=== PATIENT | male | born 1970 ===

== ENCOUNTER 2019-12-22 11:41 | Inpatient (IN) | payer OTHER ==
[2019-12-22 12:22] LABS: #Lymphocytes 0.4 thou/uL (1.20-3.40); #Monocytes 0.5 thou/uL (0.11-0.59); #Neutrophils 7.8 thou/uL (1.40-6.50); %Basophils 0.5 % (0.0-1.0); %Eosinophils 0.2 % (0.0-10.0); %Lymphocytes 4.7 % (21.0-51.0); %Monocytes 5.5 % (0.0-10.0); %Neutrophils 89.1 % (42.0-75.0); Hemoglobin 14.6 g/dL (14.0-18.0); Mean Corpuscular HGB CONC 35.4 g/dL (32.0-36.0); Mean Corpuscular Hemoglobin 32.6 pg (27.0-31.0); Mean Corpuscular Volume 92.3 fL (78.0-98.0); Mean Platelet Volume 8.3 fL (7.4-10.4); Platelet Count 162 thou/uL (130-400); RBC Distribution Width 12.7 % (11.5-14.5); Red Blood Cell (RBC) Count 4.49 mill/uL (4.70-6.10); White Blood Cell (WBC) Count 8.8 thou/uL (4.8-10.8)
--- NOTE | 2019-12-22 12:34 | RAD ---
RADIOGRAPH CHEST 1 VIEW: DATE: 12/22/2019 HISTORY: 49-year-old male with fever FINDINGS: There are no airspace densities, pulmonary edema, pneumothorax, or cardiomegaly. The lateral costophr enic angles are sharp. IMPRESSION: No acute cardiopulmonary findings.
[2019-12-22 12:45] LABS: ALT (SGPT) 45 U/L (8-55); AST (SGOT) 35 U/L (5-34); Albumin 3.9 g/dL (3.5-5.0); Alkaline Phosphatase 93 U/L (40-110); Anion Gap 13 mmol/L (10-20); BUN (Urea Nitrogen) 17 mg/dL (8.9-20.6); Bilirubin, Total 1.7 mg/dL (0.2-1.2); CK (CPK) 63 U/L (30-200); Calc. Creatinine Clearance 0 mL/min (70-130); Calcium 9.1 mg/dL (7.8-10.44); Carbon Dioxide 21 mmol/L (22-29); Chloride 104 mmol/L (98-107); Estimated GFR-MDRD 78; Globulin 3.6 g/dL (2.4-3.5); Glucose 115 mg/dL (70-105); Lipase 18 U/L (8-78); Potassium 3.9 mmol/L (3.5-5.1); Protein, Total 7.5 g/dL (6.0-8.3); Sodium 134 mmol/L (136-145)
[2019-12-22] MEDS ORDERED: Fentanyl 100 MCG/2 ML VIAL ONE ×2 (12:47→15:59)
[2019-12-22 13:19] LABS: CKMB 0.4 ng/mL (0-6.6)
[2019-12-22 13:55] LABS: Bacteria/HPF None Seen HPF (None Seen); Bilirubin Negative (Negative); Blood, Urine Trace (Negative); Clarity Clear (Clear); Glucose, Urine (Dipstick) Normal (Negative); Ketone, Urine Negative (Negative); Leukocyte Negative Leu/uL (Negative); Nitrite Negative (Negative); Protein, Urine (Dipstick) Negative (Neg-Trace); RBC/HPF 0-3 HPF (0-3); Squamous Epithelial None Seen HPF (0-3); Urobilinogen Normal mg/dL (Less than 2); WBC/HPF 0-3 HPF (0-3)
--- NOTE | 2019-12-22 14:47 | CT ---
CT ANGIOGRAM OF CHEST WITH 3D RENDERIN12/22/19 HISTORY: Elevated D-dimer, fever, neck and shoulder pain. FINDINGS: Minimal bilateral linear horizontal parenchymal changes evidence for some mild chronic change or subs egmental atelectasis. No evidence for confluent pneumonia. No mediastinal mass or adenopathy. No pleu ral effusion or pericardial effusion. The visualized upper abdomen is unremarkable. IMPRESSION: 1. No convincing CT evidence for acute pulmonary embolism. 2. Mild horizontal linear and parenchymal changes bilaterally, evidence for chronic change. POS: [facility]
[2019-12-22] MEDS ORDERED: Iopamidol-370 76% 500 ML 1 ML ONE (14:57)
[2019-12-22] MEDS ORDERED: cefTRIAXone\\ROCEPHIN 1 GM VIAL ONE (15:09)
[2019-12-22] MEDS ORDERED: Dexamethasone 10 MG/ML VIAL ONE (15:09)
[2019-12-22] MEDS ORDERED: Azithromycin 500 MG VIAL ONE (15:09)
[2019-12-22] MEDS ORDERED: Ibuprofen 800 MG TAB ONE (15:32)
[2019-12-22] MEDS ORDERED: Acetaminophen 500 MG TAB ONE (15:32)
[2019-12-22] MEDS ORDERED: Ondansetron PF 4 MG/2 ML Vial ONE (16:00)
[2019-12-22] MEDS ORDERED: Ondansetron ODT 4 MG TAB PO PRN (16:58)
--- NOTE | 2019-12-22 17:44 | PDOC.FPRHP ---
- History of Present Illness Chief Complaint: neck pain History of Present Illness: Pt is a 49 yo inmate with a PMH of [place] s/p 3 stents, HTN, HLD who presents with neck pain. He states on Tuesday or Tuesday of this week he noticed a "sore" on his upper back/neck that was painful. He said the "sore" went away and the pain got better and then the pain got worse yesterday morning when he woke up. The pain starts in his neck and radiates down to his back to about the level of his scapula. He denies the sore ever ulcerating or draining any fluid or pus. He at first just thought he slept on his neck wrong, but the pain got progressively worse. He denies any bites or trauma that he knows of. Nothing like this has ever happened before. He denies any other symptoms including no LIND, vision changes, CP, SOB, loss of bowel or urine incontinence, weakness or numbness in any of his extremities, changes in bowel habits, weight loss, night sweats, fatigue, dark stools, ingestion of any substances or any drug use. ED Course: patient received 2L NS, Rocephin 1g, Azithromycin 500mg, Zofran, Fentanyl - Allergies/Adverse Reactions Allergies Allergy/AdvReac Type Severity Reaction Status Date / Time No Known Drug Allergies Allergy Unverified 12/22/19 18:31 - Home Medications Medication Instructions Recorded Confirmed Type Amlodipine [Norvasc] 5 mg PO DAILY 12/22/19 12/22/19 History Aspirin [Children's Aspirin] 81 mg PO DAILY 12/22/19 12/22/19 History Atorvastatin Calcium 80 mg PO DAILY 12/22/19 12/22/19 History Carvedilol [Coreg] 25 mg PO DAILY 12/22/19 12/22/19 History Clopidogrel Bisulfate [Clopidogrel] 75 mg PO 12/22/19 History - History PMHx: [place] s/p 3 stents PSHx: Artificial left lens FHx: mom and dad both have a history of heart disease Social: used to smoke, but stopped in 1995. 1/2ppd for 5 years. Endorses social alcohol use and marijuana use but no IV drugs - Review of Systems General: reports: fever/chills. denies: weight/appetite/sleep changes, night sweats, fatigue Eyes: denies: vision changes Respiratory: denies: cough, shortness of breath Cardiovascular: denies: chest pain, palpitation, edema Gastrointestinal: reports: nausea. denies: vomiting, diarrhea, constipation, abdominal pain, GI bleeding Genitourinary: denies: dysuria Skin: reports: lesions (as per HPI). denies: rashes, jaundice Musculoskeletal: reports: tenderness (as per HPI). denies: pain Neurological: denies: numbness, syncope, seizure, weakness Psychological: denies: anxiety, depression - Vital signs BP: 147/71 HR: 127 RR: 20 Tmax: Pox: 97% on RA Wt: 118kg - Physical Exam Constitutional: awake, alert and oriented -Constitutional: patient looks ill, diaphoretic HEENT: normocephalic and atraumatic, EOMI, conjunctiva clear, grossly normal vision, grossly normal hearing Neck: supple, trachea midline Chest: no-tender to palpation Heart: normal S1/S2, pulses present, no edema -Heart: tachycardic Lungs: CTAB, no respiratory distress, no wheezing Abdomen: soft, non-tender, bowel sounds present Musculoskeletal: normal structure, normal tone, ROM grossly normal (patient is hesitant to move neck. It is tender to palpation from his neck down to his thoracic spine) Neurological: no focal deficit, CN II-XII intact, normal sensation Skin: no rash/lesions (patient has a small area on his upper back/neck where you can see where his "sore" was that he is talking about per the HPI. It looks more like a very small puncture wound with no erythema, warmth, or skin changes) , good turgor Heme/Lymphatic: no unusual bruising or bleeding, no purpura Psychiatric: normal mood and affect, good judgment and insight, intact recent and remote memory FMR H&P: Results - Labs Result Diagrams: 12/22/19 12:04 12/22/19 12:04 Lab results: WBC 8.8 thou/uL (4.8-10.8) 12/22/19 12:04 Hgb 14.6 g/dL (14.0-18.0) 12/22/19 12:04 Hct 41.4 % (42.0-52.0) L 12/22/19 12:04 MCV 92.3 fL (78.0-98.0) 12/22/19 12:04 Plt Count 162 thou/uL (130-400) 12/22/19 12:04 Neutrophils % 89.1 % (42.0-75.0) H 12/22/19 12:04 ESR Westergren 29 mm/hr (Less than 15) 12/22/19 12:04 Sodium 134 mmol/L (136-145) L 12/22/19 12:04 Potassium 3.9 mmol/L (3.5-5.1) 12/22/19 12:04 Chloride 104 mmol/L (98-107) 12/22/19 12:04 Carbon Dioxide 21 mmol/L (22-29) L 12/22/19 12:04 BUN 17 mg/dL (8.9-20.6) 12/22/19 12:04 Creatinine 1.02 mg/dL (0.7-1.3) 12/22/19 12:04 Glucose 115 mg/dL (70-105) H 12/22/19 12:04 Lactic Acid 1.6 mmol/L (0.5-2.2) 12/22/19 12:04 Calcium 9.1 mg/dL (7.8-10.44) 12/22/19 12:04 Total Bilirubin 1.7 mg/dL (0.2-1.2) H 12/22/19 12:04 AST 35 U/L (5-34) H 12/22/19 12:04 ALT 45 U/L (8-55) 12/22/19 12:04 Alkaline Phosphatase 93 U/L (40-110) 12/22/19 12:04 Creatine Kinase 63 U/L (30-200) 12/22/19 12:04 CK-MB (CK-2) 0.4 ng/mL (0-6.6) 12/22/19 12:28 C-Reactive Protein 6.51 mg/dL (= or < 0.5) H 12/22/19 12:22 Serum Total Protein 7.5 g/dL (6.0-8.3) 12/22/19 12:04 Albumin 3.9 g/dL (3.5-5.0) 12/22/19 12:04 Lipase 18 U/L (8-78) 12/22/19 12:04 Urine Ketones Negative mg/dL (Negative) 12/22/19 13:37 Urine Blood Trace (Negative) A 12/22/19 13:37 Urine Nitrite Negative (Negative) 12/22/19 13:37 Ur Leukocyte Esterase Negative Latoya/uL (Negative) 12/22/19 13:37 Urine RBC 0-3 HPF (0-3) 12/22/19 13:37 Urine WBC 0-3 HPF (0-3) 12/22/19 13:37 Ur Squamous Epith Cells None Seen HPF (0-3) 12/22/19 13:37 Urine Bacteria None Seen HPF (None Seen) 12/22/19 13:37 Additional comment: CXR negative, CTA negative, CT thoracic and cervical spine negative, CT brain negative FMR H&P: A/P - Plan Sepsis likely 2/2 Meningitis vs Epidural Abscess patient complains of neck pain and a stiff neck patient is tachycardic, febrile at 105F, no WBC, elevated lactate and ESR, procal .71 COVID negative s/p 2L NS in the ED, Rocephin 1g, Azitrho 500mg, Zofran and Fentanyl -1.5 L bolus LR, then start MIVF LR @150mL/hr -Will start on Rocephin 2g q12hr, Vancomycin 15mg (pharmacy to dose) -LP not able to be obtained since patient is on ASA and Plavix. Will hold. -CT brain, cervical and thoracic spine unremarkable -continue to follow up labs, monitor vitals -follow up blood cultures CAD s/p stent placement -Aware, continue on home meds but hold ASA and Plavix HTN -Aware, continue on home meds HLD -Aware, continue on home meds Dispo: admit inpatient Tele IVF: 150mL/hr LR Diet: NPO Code Status: FULL CODE DVT Prophylaxis: Lovenox FMR H&P: Upper Level - Plan Date/Time: 12/22/19 1713 Qasim Damon PGY3, have evaluated this patient and agree with findings/plan as outlined by newsroom intern resident. Pertinent changes/additions are listed here. 49yo freedom impaired male presents for neck pain and fevers. His exam is significant for a TMAX 105F and ttp over the vertebra C4-T3. He was also tachycardic to 110s with regular rhythm. Assesment and Plan: Sepsis 2/2 suspected meningitis vs. epidural abscess A- With significant fever and impressive exam we will treat this as sepsis 2/2 meningitis while working this patient up. ddimer elevated but chest CT unremarkable. CXR wnl, WBC only 8.8, covid negative, CRP 6.5. He is s/p 2L of NS and still tachycardic P- admit to tele, inpatient -CT Brain, C-spine, and T-spine -anticipate doing LP -Rocephin 2g q12H -Vancomycin -will give another bolus 1.5L to complete 3cc/kg -start mLR after bolus -f/u BCx -f/u CSF studies (cell count & diff, glucose, protein, Gm stain and culture) CAD s/p stents -MD aware, will hold dual antiplatelet therapy considering recent LP for now. HTN -home amlodipine to be restarted once BPs have been stable at least 12 hours HLD -home atorvastatin CODE: FULL IVF: LR 150/hr Diet: HH PCP: Residential dispo: tele, inpatient, expect greater than 2 midnight stay Addendum - Attending - Attending Attestation Date/Time: 12/22/192012 I personally evaluated the patient and discussed the management with Dr. Fritz/ Edgar. I agree with the History, Examination, Assessment and Plan documented above with any addition or exceptions noted below. Patient with past medical history of CAD here with a couple day complaints of midline neck pain as well as generalized malaise. Upon arrival to the emergency department, patient was found to have temperature of 105 Fahrenheit. Exam is consistent with neck stiffness and difficulty with neck flexion secondary to pain. Patient is diaphoretic and ill appearing. He was tachycardic but normotensive. He has no neurological deficits. The rest of his exam was non- contributory. Lab work shows mild left shift but no elevation of white blood count. CT angiogram of the chest was negative for PE. CT brain, CT C and T spine were negative for acute pathology. Due to patients presentation and septic appearance, patient will be admitted for concern of meningitis versus epidural abscess. LP not attempted this evening due to the patient being active on dual antiplatelet therapy. The patient will be started on Rocephin 4 grams Q 24 hours as well as vancomycin. Obtain blood cultures. Consider LP with interventional radiology tomorrow. Consider MRI brain as well as C and T spine tomorrow to further evaluate for spine pathology. Further management pending clinical course.
--- NOTE | 2019-12-22 17:53 | CT ---
HEAD CT WITHOUT CONTRAST: 12/22/19 HISTORY: Fever and pain. TECHNIQUE: Axial CT imaging at 5 mm intervals from vertex through skull base without contrast. Of note, the campbell ent was administered IV contrast earlier on 12/22/[address] angiogram of the chest. FINDINGS: No intracranial hemorrhage, midline shift, or mass effect. The visualized paranasal sinuses and masto id air cells are grossly unremarkable. No acute osseous abnormality. IMPRESSION: No acute findings. POS: [facility]
--- NOTE | 2019-12-22 18:32 | CT ---
CERVICAL SPINE CT WITHOUT CONTRAST: 12/22/19 COMPARISON: None. HISTORY: Neck pain. TECHNIQUE: Axial CT imaging at 2 mm intervals through the cervical spine with coronal and sagittal reformatted i maging. FINDINGS: Imaged lung apices are unremarkable. There is disc space narrowing with anterior osteophyte formation at C4-5, C5-6 and C6-7. There is mod erate degenerative change at atlantoaxial interspace. The craniocervical junction, atlantoaxial inter milly, cervicothoracic junction, occipital condyles, dense, and C1-2 articulation demonstrate no acute findings. There is uncovertebral osteophyte formation on the left at C4-5 and C5-6. No lytic or blast ic bone lesion. No acute fracture or dislocation. IMPRESSION: No acute osseous abnormality. POS: [facility]
--- NOTE | 2019-12-22 18:36 | CT ---
THORACIC SPINE CT WITHOUT CONTRAST: 12/22/19 COMPARISON: None. HISTORY: Pain. TECHNIQUE: Axial CT imaging at 2 mm intervals through the thoracic spine with coronal and sagittal reformatted i maging. FINDINGS: Evaluation for central canal and/or neural foraminal stenosis is limited on routine CT. Partially agapito ged lung parenchyma grossly unremarkable. Multilevel mid and lower thoracic spine disc space narrowing with degenerative end plate change prese nt. There is multilevel anterior osteophyte formation within the mid and lower thoracic spine, right greater than left. There is no lytic or blastic bone lesion. No anterolisthesis or retrolisthesis. N o acute fracture or evidence of dislocation. No osseous cause of significant central canal or neural foraminal stenosis is noted within the thoracic spine. IMPRESSION: No acute osseous abnormality. POS: [facility]
[2019-12-22] MEDS ORDERED: HYDROcodone/Acetaminophen 5/325 mg Tablet PO PRN ×2 (19:20)
[2019-12-22 19:50] VITALS: BMI 33.7
[2019-12-22] MEDS ORDERED: Vancomycin HCl 2.5 GM in Sodium Chloride 0.9% 500 ML IVPB SCH (20:00)
[2019-12-22] MEDS: Lactated Ringer's 1,000 ML IV SCH ×3 (20:50→23:08)
[2019-12-23 01:37] LABS: Amphetamine Not Detected (NotDetected); Barbiturates Screen Not Detected (NotDetected); Benzodiazepine Screen Not Detected (NotDetected); Cocaine Metabolite Screen Not Detected (NotDetected); Medtox Control Line Valid? VALID (VALID); Medtox Reader # READER 4; Methadone Not Detected (NotDetected); Methamphetamine Not Detected (NotDetected); Opiate Screen Not Detected (NotDetected); Oxycodone Screen Not Detected (NotDetected); Phencyclidine (PCP) Not Detected (NotDetected); THC/Cannabinoid Screen Not Detected (NotDetected); Tricyclic Screen Not Detected (NotDetected)
[2019-12-23] MEDS: cefTRIAXone\\ROCEPHIN 2 GM in Sodium Chloride 0.9% 100 ML IVPB SCH ×2 (02:57→15:16)
[2019-12-23 04:48] LABS: #Basophils 0.2 thou/uL (0.0-0.2); #Lymphocytes 0.4 thou/uL (1.20-3.40); #Monocytes 0.4 thou/uL (0.11-0.59); #Neutrophils 14.3 thou/uL (1.40-6.50); %Basophils 1.1 % (0.0-1.0); %Eosinophils 0.2 % (0.0-10.0); %Lymphocytes 2.4 % (21.0-51.0); %Monocytes 2.5 % (0.0-10.0); %Neutrophils 93.8 % (42.0-75.0); Hemoglobin 15.2 g/dL (14.0-18.0); Mean Corpuscular HGB CONC 33.7 g/dL (32.0-36.0); Mean Corpuscular Hemoglobin 31.8 pg (27.0-31.0); Mean Corpuscular Volume 94.6 fL (78.0-98.0); Mean Platelet Volume 8.1 fL (7.4-10.4); Platelet Count 162 thou/uL (130-400); RBC Distribution Width 12.8 % (11.5-14.5); Red Blood Cell (RBC) Count 4.78 mill/uL (4.70-6.10); White Blood Cell (WBC) Count 15.3 thou/uL (4.8-10.8)
[2019-12-23] MEDS: Vancomycin 1.5 GRAM/300 ML BAG 1.5 GM in Premix Bag 1 BAG IVPB SCH ×3 (05:02→21:08)
[2019-12-23 05:09] LABS: ALT (SGPT) 55 U/L (8-55); AST (SGOT) 44 U/L (5-34); Albumin 3.8 g/dL (3.5-5.0); Alkaline Phosphatase 85 U/L (40-110); Anion Gap 15 mmol/L (10-20); BUN (Urea Nitrogen) 17 mg/dL (8.9-20.6); Bilirubin, Total 1.2 mg/dL (0.2-1.2); Calc. Creatinine Clearance 162 mL/min (70-130); Calcium 8.6 mg/dL (7.8-10.44); Carbon Dioxide 18 mmol/L (22-29); Chloride 109 mmol/L (98-107); Estimated GFR-MDRD 85; Globulin 3.8 g/dL (2.4-3.5); Glucose 161 mg/dL (70-105); Potassium 3.4 mmol/L (3.5-5.1); Protein, Total 7.6 g/dL (6.0-8.3); Sodium 139 mmol/L (136-145)
[2019-12-23] MEDS: Acetaminophen 325 MG TAB PO PRN ×4 (05:13→21:08)
--- NOTE | 2019-12-23 05:53 | PDOC.FM ---
- Subjective Subjective: Pt is a 49 yo inmate with a PMH of [place] s/p 3 stents, HTN, HLD who presents with neck pain. Patient states he is doing much better this morning and does not feel as sick and weak. His neck still hurts, but he endorses improvement. He said he felt like he had chills earlier, but the nurse checked his temperature and he was afebrile. He is able to get up and ambulate to the restroom without assistance. He denies any other complaints. Denies LIND, SOB, CP, abdominal pain,vision changes, numbness or weakness. - Objective MAR Reviewed: Yes Vital Signs & Weight: Vital Signs (12 hours) Temp Pulse Resp BP Pulse Ox 12/23/19 03:07 97.9 F 86 18 123/60 93 L 12/23/19 01:03 97.4 F L 12/22/19 19:19 98.3 F 87 16 112/56 L 96 Weight Weight 119.34 kg I&O: 12/21/19 12/22/19 12/23/19 06:59 06:59 06:59 Intake Total 580 Balance 580 Result Diagrams: 12/23/19 04:39 12/23/19 04:39 Phys Exam - Physical Examination Constitutional: NAD HEENT: sclera anicteric Neck: supple, full ROM Respiratory: no wheezing, clear to auscultation bilateral Cardiovascular: RRR, no significant murmur Gastrointestinal: soft, non-tender, no distention, positive bowel sounds Musculoskeletal: no edema, pulses present Neurological: moves all 4 limbs Patient was shaking, espeically in his upper body and UE. Psychiatric: normal affect, A&O x 3 Skin: no rash, normal turgor Dx/Plan - Plan Plan: Sepsis likely 2/2 Meningitis vs Epidural Abscess patient complains of neck pain and a stiff neck patient is tachycardic, febrile at 105F, no WBC, elevated lactate and ESR, procal .71 in the ED COVID negative s/p 2L NS in the ED, Rocephin 1g, Azitrho 500mg, Zofran and Fentanyl -s/p 1.5 L bolus LR - MIVF LR @150mL/hr -Rocephin 2g q12hr, Vancomycin 15mg (pharmacy to dose) -LP not able to be obtained since patient is on ASA and Plavix. Will hold. -CT brain, cervical and thoracic spine unremarkable -continue to follow up labs, monitor vitals -follow up blood cultures, prelim shows both cultures positive for E Coli, follow up sensitivities -WBC elevated at 15.3 (12/22) -consider MRI brain/neck Hypokalemia potassium of 3.4 -will replace CAD s/p stent placement -Aware, continue on home meds but hold ASA and Plavix HTN -Aware, continue on home meds HLD -Aware, continue on home meds Dispo: admit inpatient Tele IVF: 150mL/hr LR Diet: Heart healthy Code Status: FULL CODE DVT Prophylaxis: SCDs Addendum - Attending - Attending Attestation Date/Time: 12/23/19 7618 I personally evaluated the patient and discussed the management with Dr. Fritz. I agree with the History, Examination, Assessment and Plan documented above with any addition or exceptions noted below. Patient admitted here with original concern for Meningitis or epidural abscess. His blood culture is currently growing E. coli. He continues to have significant neck pain and mild headache. LP deferred yesterday due to DAPT. Needs MRI Brain and spine to further evaluate if his nidus of infection is located there. Continue broad spectrum abx. Fortunately he has not run another fever since starting abx therapy. He has no focal neurological signs. Continue to monitor and adjust course and clinical status dictates.
[2019-12-23] MEDS ORDERED: Potassium Chloride 20 MEQ TAB PO SCH (06:00)
[2019-12-23] MEDS: Amlodipine 5 MG TAB PO SCH (08:02)
[2019-12-23] MEDS: Carvedilol 25 MG TAB PO SCH (08:02)
[2019-12-23] MEDS: Atorvastatin Calcium 40 MG TAB PO SCH (08:02)
[2019-12-23 08:04] LABS: Hemoglobin A1c 4.9 % (4.0-6.0)
[2019-12-23] MEDS: Lactated Ringer's 1,000 ML IV SCH ×3 (08:16→21:08)
[2019-12-23] MEDS ORDERED: Enoxaparin Sodium 40 MG/0.4 ML SYRINGE SC SCH ×2 (09:00→16:00)
[2019-12-23] MEDS ORDERED: Lorazepam 0.5 MG TAB PO SCH (10:58)
[2019-12-23] MEDS ORDERED: ALPRAZolam 0.5 MG TAB PO SCH (12:30)
--- NOTE | 2019-12-23 16:08 | PDOC.BPN ---
- Brief Progress Note Nurse called around 1630 to report that pt was having shaking chills, hypoxic on RA, tachycardia, tachypnea and cyanosis. On exam patient's BP is 183/92, HR 140s, O2 sat 97% on 4L, using accessory muscles for respiration, cyanosis of the lips and rigors. We ordered stat ekg, CXR, ABG and 1L bolus of LR. Ekg showed sinus tach with no ST or T wave changes. Will continue to monitor.
--- NOTE | 2019-12-23 16:48 | RAD ---
FRONTAL RADIOGRAPH CHEST: Date: 12-23-2019 Comparison: 12-22-2019 History: Fever FINDINGS: The patient is mildly rotated to the right. Heart and mediastinal contours are stable. No pneumothora x, pleural fluid, focal consolidation or alveolar edema. IMPRESSION: No acute findings. POS: [facility]
[2019-12-23 16:57] LABS: Actual Bicarbonate (HCO3a) 17.2 mEq/L (22-28); Base Excess (BEa) -5.2 mEq/L (-2.0 to +3.0); Calcium, Ionized (arterial) 1.13 mmol/L (1.12-1.30); Carboxyhemoglobin (COHb) 0.3 gm% (0.0-3.0); Hemoglobin (Hb) 13.4 g/dL (14.0-18.0); Potassium - ABG Lab 3.67 mmol/L (3.70-5.30); pH, Arterial 7.45 (7.35-7.45)
[2019-12-23] MEDS ORDERED: Lactated Ringer's 1,000 ML IV SCH (17:00)
[2019-12-23 17:09] LABS: CO2 Tension 25.6 mmHg (35.0-45.0)
[2019-12-23 17:10] LABS: Puncture Site RBA
[2019-12-23 18:19] LABS: Troponin I 0.264 ng/mL (< 0.028)
[2019-12-23 21:31] LABS: Vancomycin, Trough 13.5 ug/mL
[2019-12-24] MEDS: cefTRIAXone\\ROCEPHIN 2 GM in Sodium Chloride 0.9% 100 ML IVPB SCH ×2 (02:45→16:40)
[2019-12-24] MEDS: Lactated Ringer's 1,000 ML IV SCH ×2 (02:51→11:43)
[2019-12-24] MEDS: Acetaminophen 325 MG TAB PO PRN ×3 (03:22→21:18)
[2019-12-24 05:07] LABS: ALT (SGPT) 66 U/L (8-55); AST (SGOT) 72 U/L (5-34); Albumin 3.3 g/dL (3.5-5.0); Alkaline Phosphatase 81 U/L (40-110); Anion Gap 14 mmol/L (10-20); BUN (Urea Nitrogen) 17 mg/dL (8.9-20.6); Bilirubin, Total 1.5 mg/dL (0.2-1.2); Calc. Creatinine Clearance 171 mL/min (70-130); Carbon Dioxide 19 mmol/L (22-29); Chloride 111 mmol/L (98-107); Estimated GFR-MDRD 90; Globulin 3.5 g/dL (2.4-3.5); Glucose 80 mg/dL (70-105); Potassium 4.4 mmol/L (3.5-5.1); Protein, Total 6.8 g/dL (6.0-8.3); Sodium 140 mmol/L (136-145)
[2019-12-24] MEDS: Vancomycin 1.5 GRAM/300 ML BAG 1.5 GM in Premix Bag 1 BAG IVPB SCH ×2 (05:10→14:20)
[2019-12-24 05:25] LABS: Troponin I 0.154 ng/mL (< 0.028)
[2019-12-24] MEDS ORDERED: Ibuprofen 800 MG TAB PO SCH (05:45)
--- NOTE | 2019-12-24 05:51 | PDOC.BPN ---
- Brief Progress Note Nurse called around 0430 to report that pt was having shaking, chills, and cyanosis. His temp was 97.9. Was not hypoxic, but wanted to be on oxygen and was saturating well on 4L. He requested to drink hot water, which he said was helpful upon examination. On exam patient's SBP was 110s and HR 150s. His heart rate had been elevated for 30 mins. We ordered stat EKG and Troponin. EKG showed sinus tachycardia with no ST or T wave changes. Will continue to monitor. @0567 Nurse called again to say that shivering had stopped and he felt much better.
[2019-12-24] MEDS: Atorvastatin Calcium 40 MG TAB PO SCH (08:24)
[2019-12-24] MEDS: Enoxaparin Sodium 40 MG/0.4 ML SYRINGE SC SCH (08:24)
--- NOTE | 2019-12-24 08:30 | PDOC.FM ---
- Subjective Subjective: 49 y/o inmate with PMHx [place] s/p stents x3, HTN, hyperlipidemia who presented for neck pain and found to have E. coli bacteremia, etiology pending. Today c/o continued neck pain, trouble sleeping due to discomfort. Requests something to help with pain and/or relaxation. Reports feeling lightheaded when he stood up to use the bathroom yesterday. Denies any chest pain, SOB, abdominal pain, dysuria, black or bloody stools. - Objective Vital Signs & Weight: Vital Signs (12 hours) Temp Pulse Resp BP Pulse Ox 12/24/19 08:05 99.0 F 106 H 20 101/63 97 12/24/19 06:33 100.5 F H 12/24/19 05:59 100.2 F H 12/24/19 04:22 97.9 F 12/24/19 03:52 98.6 F 12/24/19 03:31 96 12/24/19 03:07 98 F 89 18 110/64 96 12/24/19 02:56 98.3 F 80 18 125/58 L 93 L 12/23/19 23:20 98.6 F 12/23/19 21:07 99.1 F Weight Weight 120.021 kg I&O: 12/23/19 12/24/19 12/25/19 06:59 06:59 06:59 Intake Total 580 7680 Output Total 500 Balance 580 7180 Result Diagrams: 12/24/19 08:10 12/24/19 04:43 Phys Exam - Physical Examination appears uncomforable, lying on side in bed HEENT: PERRLA ROM limited 2/2 pain Respiratory: no wheezing, no rales, no rhonchi, clear to auscultation bilateral Cardiovascular: RRR, no significant murmur Gastrointestinal: soft, non-tender, positive bowel sounds Musculoskeletal: no edema, pulses present Neurological: moves all 4 limbs Skin: no rash Dx/Plan (1) CAD (coronary artery disease) Code(s): I25.10 - ATHSCL HEART DISEASE OF [place] CORONARY ARTERY W/O ANG PCTRS Status: Chronic (2) HTN (hypertension) Code(s): I10 - ESSENTIAL (PRIMARY) HYPERTENSION Status: Chronic (3) HLD (hyperlipidemia) Code(s): E78.5 - HYPERLIPIDEMIA, UNSPECIFIED Status: Chronic (4) Bacteremia Code(s): R78.81 - BACTEREMIA Status: Acute - Plan Plan: Sepsis likely 2/2 Meningitis vs Epidural Abscess Continued neck pain, fever, tachycardia. COVID negative. s/p 30cc/kg fluid bolus, abx (rocephin azithro), blood cultures in ED. Unable to complete MRI yesterday 2/2 anxiety/claustrophobia. Blood cx postive E. coli. CT brain, neck, spine and CXR have been unremarkable for infection - MRI brain, neck, spine scheduled with general anesthesia for 12/24, f/u results - Consulted ID, Dr. Guerra, appreciate recs - Holding plavix for possible LP, pending ID recs - Continue to f/u labs, monitor vitals - Ordered TTE for endocarditis eval - Will perform prostate exam today CAD s/p stent placement - Stents placed in 09/2019 - Plavix held since 12/21, if no need for LP will resume Claustrophobia self-reported. unable to tolerate MRI. - General anesthesia for MRI tomorrow - NPO at midnight Hypokalemia, resolved - continue to monitor and replete as needed HTN -Aware, continue on home meds HLD -Aware, continue on home meds Dispo: admit inpatient Tele IVF: 150mL/hr LR Diet: Heart healthy Code Status: FULL CODE DVT Prophylaxis: SCDs Addendum - Attending - Attending Attestation Date/Time: 12/24/19 1520 I personally evaluated the patient and discussed the management with Dr. [] I agree with the History, Examination, Assessment and Plan documented above with any addition or exceptions noted below. Patient now has 2/2 bcx for e. coli. Neck pain improving. d/c vanc. Had stents placed 2-3 months ago. Will discuss need for LP with ID and restart plavix JEFF. I feel that at this time the risk of continued cessation of his DAPT far outweighs any benefit from an LP at this point as he will need to be off the plavix for 7 days before LP can be performed. Will consult anesthesia to help with sedation for MRI as we still need to r/o epidural abscess. F/U recs from ID.
[2019-12-24] MEDS: Amlodipine 5 MG TAB PO SCH (09:14)
[2019-12-24] MEDS: Carvedilol 25 MG TAB PO SCH (09:14)
[2019-12-24 09:38] LABS: Band 29 % (5-11); Hemoglobin 12.8 g/dL (14.0-18.0); Lymphocytes 1 % (21-51); MDiff Complete? YES; Mean Corpuscular HGB CONC 32.6 g/dL (32.0-36.0); Mean Corpuscular Hemoglobin 30.7 pg (27.0-31.0); Mean Corpuscular Volume 94.1 fL (78.0-98.0); Mean Platelet Volume 8.5 fL (7.4-10.4); Neutrophil 70 % (42-75); Platelet Count 100 thou/uL (130-400); Platelet Morphology Comment Appears Decreased; Polychromasia SLIGHT = 2-3 cells (100X) (0-2/hpf); RBC Distribution Width 13.1 % (11.5-14.5); Red Blood Cell (RBC) Count 4.17 mill/uL (4.70-6.10); White Blood Cell (WBC) Count 8.9 thou/uL (4.8-10.8)
[2019-12-24] MEDS ORDERED: Iopamidol-370 76% 500 ML 1 ML ONE (09:57)
--- NOTE | 2019-12-24 17:21 | CON ---
DATE OF CONSULTATION: 12/24/2019 REASON FOR CONSULTATION: Bacteremia. HISTORY OF PRESENT ILLNESS: A 49-year-old patient who is an inmate at [facility] and has a history of coronary artery bypass graft surgery and also nephrolithiasis, which required a stent and lithotripsy in the past in [place] in 2018. The patient developed fever for the past few days. He did have some pain and soreness in the right side of his neck and shoulder area, but that has resolved. He still has a little bit of soreness, but not nearly as much. Denies headaches. No visual symptoms, sore throat, odynophagia, or dysphagia. No cough, sputum production, or chest pain. No abdominal pain. No genitourinary symptoms, specifically no dysuria, frequency, or hematuria. No joint symptoms or skin disorder. PAST MEDICAL HISTORY: 1. Hypertension. 2. Hyperlipidemia. 3. Bypass graft surgery. 4. Nephrolithiasis with stent and lithotripsy in 2018. ALLERGIES: NONE. CURRENT MEDICATIONS: 1. Norvasc. 2. Lipitor. 3. Coreg. 4. Ceftriaxone. 5. Lovenox. 6. Vancomycin. PHYSICAL EXAMINATION: VITAL SIGNS: T-max 101.6 and he is now 98.5, BP 100/62, pulse 92, respirations 20, and O2 saturation 98. SKIN: Normal. He has a peripheral IV access. He is voiding in the toilet. No lymphadenopathy. HEENT: Ocular movements conjugate. Oral cavity unremarkable. NECK: Supple. No jugular vein distention. No tenderness in the neck area. Range of motion of the neck is intact. LUNGS: Symmetric, clear breath sounds. HEART: S1 and S2. Regular rate without murmurs. No S3 or S4. ABDOMEN: Soft, not distended or tender. No ascites. No bladder distention. EXTREMITIES: No joint inflammatory activity. No edema. Pulses 1+ in dorsalis pedis. Moves extremities equally. NEUROLOGIC: Cognitive function appears to be intact. LABORATORY STUDIES: Urinalysis was essentially normal. White cell count was 8.8 and 15.3 and now 8.9, hemoglobin 14, and platelets 162 with a predominance of mature neutrophils, total neutrophil count 7.8, sedimentation rate 29. D-dimer 1.92. A pH 7.45, pCO2 of 25, and PO2 of 77. Sodium 134 and creatinine 1.02. Bilirubin 1.7, AST 35, albumin 3.9, and globulin 3.6. CRP 6.1. Procalcitonin was 0.71. Toxicology negative. SARS-CoV-2 not detected. In 2/2 sets of blood cultures with gram-negative monica, which is identified as E coli, pending susceptibilities. It does not appear to be an ESBL organism. Chest x-ray with no acute findings. Chest CT with no acute findings, no pulmonary embolism. ASSESSMENT: 1. Coronary artery disease. 2. Hypertension. 3. Prior episode of nephrolithiasis, which required stent placement and lithotripsy in [place] in 2018. 4. Fever, chills, and Escherichia coli bacteremia. I do not see a urine culture submitted. I guess it was not because of normal urinalysis. DISCUSSION: The differential diagnosis includes urinary tract infection with a normal urinalysis, may be due to upper tract involvement exclusively. I looked at the kidney images on the CT scan of the chest. I wonder if he still has a stent on the right side. We will go ahead and order a CT of the abdomen and pelvis with contrast, and since the organism does not appear to be an ESBL, I think the Rocephin is good for now. Regarding his neck, right now he does not have any symptoms, typically neck infections are quite painful and one would expect tenderness on palpation and reduction of range of motion. Other sites such as intra-abdominal inflammatory process, not yet ruled out, but less likely, liver abscess and so on, those appear to be less likely. The lung inflammatory process has been effectively ruled out. COVID-19 infection is unlikely at least for now. Job ID: [id number]
--- NOTE | 2019-12-24 19:02 | CT ---
CT ABDOMEN AND PELVIS WITH ORAL AND IV CONTRAST: Multiplanar reconstructions provided. Indications: Bacteremia with urinary obstruction. FINDINGS: Lung bases appear clear. Liver, spleen, and pancreas unremarkable. Stomach and duodenum unremarkable. Adrenal glands normal. Kidneys unremarkable. There is a small cystic lesion from the posterior right mid-kidney, measuring a pproximately 1.8 cm. No hydronephrosis or urinary obstruction. No evidence of urinary calculus. Urete rs are normal. The urinary bladder is unremarkable, although minimally distended. Small bowel loops appear normal. The colon is unremarkable. Aorta normal caliber. No mass or adenopat hy. No free fluid. Osseous structures unremarkable. Degenerative changes in the visualized spine. IMPRESSION: No acute intraabdominal process identified. POS: AGW
[2019-12-25] MEDS: cefTRIAXone\\ROCEPHIN 2 GM in Sodium Chloride 0.9% 100 ML IVPB SCH ×2 (02:48→15:17)
[2019-12-25] MEDS: Lactated Ringer's 1,000 ML IV SCH ×3 (02:48→10:11)
[2019-12-25] MEDS: Acetaminophen 325 MG TAB PO PRN ×2 (02:53→21:07)
[2019-12-25 04:57] LABS: #Lymphocytes 0.4 thou/uL (1.20-3.40); #Monocytes 0.5 thou/uL (0.11-0.59); #Neutrophils 5.1 thou/uL (1.40-6.50); %Basophils 0.3 % (0.0-1.0); %Eosinophils 0.3 % (0.0-10.0); %Lymphocytes 7.2 % (21.0-51.0); %Monocytes 7.6 % (0.0-10.0); %Neutrophils 84.7 % (42.0-75.0); Hemoglobin 11.7 g/dL (14.0-18.0); Mean Corpuscular HGB CONC 33.9 g/dL (32.0-36.0); Mean Corpuscular Hemoglobin 32.5 pg (27.0-31.0); Mean Corpuscular Volume 95.6 fL (78.0-98.0); Mean Platelet Volume 9.7 fL (7.4-10.4); Platelet Count 104 thou/uL (130-400); RBC Distribution Width 13.2 % (11.5-14.5); Red Blood Cell (RBC) Count 3.62 mill/uL (4.70-6.10)
[2019-12-25 05:07] LABS: ALT (SGPT) 44 U/L (8-55); AST (SGOT) 53 U/L (5-34); Albumin 2.8 g/dL (3.5-5.0); Alkaline Phosphatase 61 U/L (40-110); Anion Gap 10 mmol/L (10-20); BUN (Urea Nitrogen) 16 mg/dL (8.9-20.6); Bilirubin, Total 0.9 mg/dL (0.2-1.2); Calc. Creatinine Clearance 224 mL/min (70-130); Calcium 7.4 mg/dL (7.8-10.44); Carbon Dioxide 19 mmol/L (22-29); Chloride 111 mmol/L (98-107); Estimated GFR-MDRD Greater than 90; Globulin 2.9 g/dL (2.4-3.5); Glucose 88 mg/dL (70-105); Potassium 3.4 mmol/L (3.5-5.1); Protein, Total 5.7 g/dL (6.0-8.3); Sodium 137 mmol/L (136-145)
--- NOTE | 2019-12-25 05:40 | PDOC.FM ---
- Subjective Subjective: No acute overnight events. He c/o diarrhea x3 episodes yesterday. Reports some blood with wiping, but denies any bloody diarrhea. Pt still c/o neck pain, mild improvement with tylenol. Has 2L NC intermittently, states is makes him feel better when he has fever/chills. Has not been hypoxic at all. Otherwise no new complaints. He is aware of MRI with general anesthesia later today. Denies any chest pain, SOB, abdominal pain. - Objective Vital Signs & Weight: Vital Signs (12 hours) Temp Pulse Resp BP BP Pulse Ox 12/25/19 03:26 99.8 F H 93 18 118/57 L 98 12/25/19 00:00 115 H 12/24/19 19:32 99.3 F 108 H 18 124/72 98 Weight Weight 121.155 kg I&O: 12/23/19 12/24/19 12/25/19 06:59 06:59 06:59 Intake Total 580 7680 Output Total 500 Balance 580 7180 Result Diagrams: 12/25/19 04:24 12/25/19 04:24 Phys Exam - Physical Examination Constitutional: NAD HEENT: moist MMs Neck: supple ROM limited pain Respiratory: no wheezing, no rales, no rhonchi, clear to auscultation bilateral Cardiovascular: RRR, no significant murmur Gastrointestinal: soft, non-tender, no distention, positive bowel sounds Musculoskeletal: no edema, pulses present Neurological: non-focal, moves all 4 limbs Psychiatric: normal affect Dx/Plan (1) CAD (coronary artery disease) Code(s): I25.10 - ATHSCL HEART DISEASE OF [place] CORONARY ARTERY W/O ANG PCTRS Status: Chronic (2) HTN (hypertension) Code(s): I10 - ESSENTIAL (PRIMARY) HYPERTENSION Status: Chronic (3) HLD (hyperlipidemia) Code(s): E78.5 - HYPERLIPIDEMIA, UNSPECIFIED Status: Chronic (4) Bacteremia Code(s): R78.81 - BACTEREMIA Status: Acute - Plan Plan: Sepsis likely 2/2 Meningitis vs Epidural Abscess vs intra-abdominal process Continued neck pain, fever, tachycardia. COVID negative. Blood cx positive for E. coli, unknown source. Procalcitonin 73. Unremarkable imaging so far including CT head and neck, CXR. Prostate exam performed 12/23 without tenderness. -Infectious disease consulted, appreciate recs -f/u echo r/o endocarditis -MRI with general anesthesia today, f/u results -f/u CT abd pelvis -tylenol PRN for fever -discontinued vancomycin as not needed for E. coli coverage -continue rocephin -toradol 15 mg IV once for neck pain this AM CAD s/p stent placement - Stents placed in 09/2019 - Plavix held since 12/21, if no need for LP will resume Thrombocytopenia Plt have dropped from 160s to 104 over the past 2 days. Possibly due to sepsis vs lovenox. - Continue to monitor - Consider DEMETRIUS antibodies Claustrophobia self-reported. unable to tolerate MRI. - General anesthesia for MRI today Hypokalemia - continue to monitor and replete as needed HTN -Aware, continue on home meds HLD -Aware, continue on home meds Dispo: admit inpatient Tele IVF: 150mL/hr LR Diet: Heart healthy, NPO for procedure Code Status: FULL CODE DVT Prophylaxis: SCDs Addendum - Attending - Attending Attestation Date/Time: 12/25/19 8511 I personally evaluated the patient and discussed the management with Dr. Govea. I agree with the History, Examination, Assessment and Plan documented above with any addition or exceptions noted below. No LP per ID. Restart Plavix. continue rocephin. PICC Line in next 1-2 days. MRI today. Dispo pending MRI report and ID recs. Will hold lovenox tomorrow if Platelets continue to down trend.
[2019-12-25] MEDS ORDERED: Ketorolac Tromethamine 30 MG/ML VIAL IVP SCH (07:47)
[2019-12-25] MEDS: Carvedilol 25 MG TAB PO SCH (08:08)
[2019-12-25] MEDS: Atorvastatin Calcium 40 MG TAB PO SCH (08:08)
[2019-12-25] MEDS: Amlodipine 5 MG TAB PO SCH (08:08)
[2019-12-25] MEDS: Enoxaparin Sodium 40 MG/0.4 ML SYRINGE SC SCH (08:09)
[2019-12-25] MEDS ORDERED: Potassium Chloride 20 MEQ TAB PO SCH (10:00)
[2019-12-25] MEDS ORDERED: Fentanyl 100 MCG/2 ML VIAL ONE ×2 (11:46→14:14)
[2019-12-25] MEDS ORDERED: Propofol 1,000 MG/100 ML VIAL IV ONE (11:47)
[2019-12-25] MEDS ORDERED: PROPOFOL 200 MG/20 ML VIAL ONE (12:54)
[2019-12-25] MEDS ORDERED: Ondansetron PF 4 MG/2 ML Vial ONE (12:54)
[2019-12-25] MEDS ORDERED: EPHEDRINE 25 MG/5 ML SYRINGE ONE (12:54)
[2019-12-25] MEDS ORDERED: PHENYLEPHRINE-NS 100 MCG/ML 10 ML SYRINGE ONE (12:54)
[2019-12-25] MEDS ORDERED: Rocuronium Bromide 10 MG/ML (10ML VIAL) ONE (12:54)
[2019-12-25] MEDS ORDERED: Glycopyrrolate 0.2 MG/ML 5 ML SYRINGE ONE (12:54)
--- NOTE | 2019-12-25 13:46 | MRI ---
CERVICAL SPINE MRI WITH AND WITHOUT CONTRAST: HISTORY: Midline neck pain. Bacteremia. Evaluate for abscess. COMPARISON: None. FINDINGS: Appropriate T1 marrow signal intensity of the cervical vertebrae. Cervical spine vertebral body heigh ts are maintained. No fracture. No significant STIR hyperintensity to suggest vertebral body edema or ligamentous injury. Visualized brain parenchyma, cervical medullary junction, cervical cord and the upper thoracic cord h ave a normal size and signal intensity Postcontrast: No abnormal enhancing paraspinal or epidural fluid collections. No abnormal enhancement in the visualized brain parenchyma and spinal cord. C2-C3: No significant central canal stenosis. Neural foramina are patent. C3-C4: Broad-based disc bulge abuts the thecal sac. Ventral subarachnoid space is effaced, without si gnificant mass effect upon the cord. No significant central canal stenosis. Mild right neural foraminal narrowing due to uncovertebral hypertrophy. Patent left neural foramen. C4-C5: Desiccation with mild loss of disc space height. Broad-based disc-osteophyte complex effaces t he subarachnoid space. Mild flattening of the cervical cord. Mild central canal stenosis. Mild to moderate bilateral neural foraminal narrowing. C5-6: Disc desiccation with mild loss of disc space height. Broad-based disc-osteophyte complex abuts the thecal sac. Subarachnoid space is nearly effaced. Mild central canal stenosis. Moderate bilateral foraminal narrowing. C6-C7: No significant central canal stenosis or significant neural foraminal narrowing. C7-T1: No significant central canal stenosis or neural foraminal narrowing. IMPRESSION: 1. Disc-osteophyte complex at the 4-C5 and C5-C6. Mild central canal stenosis at both levels. Mild to moderate bilateral foraminal narrowing at C4-C5.. Moderate bilateral foraminal narrowing at C5-C6. 2. No abnormal enhancement to suggest an epidural abscess. Transcribed Date/Time: 12/25/2019 2:05 PM
--- NOTE | 2019-12-25 13:50 | MRI ---
MRI thoracic spine with and without contrast: 12/25/2019 HISTORY: 49-year-old male with mid back pain and fever. FINDINGS: Vertebral body heights are maintained. There is a large hemangioma (venous malformations of bone) at T4 vertebral body. Otherwise, bone marrow signal is normal, with no marrow edema and no evidence of metastatic disease. Images are degraded by motion. This decreases the sensitivity for the detection o f intramedullary signal abnormality on T2 WI. There is no syrinx. There is no abnormal enhancement, mass, or abscess, in the intramedullary, extramedullary-intradural, extradural, or intraosseous, spac es. There is a new finding of extensive consolidations in the visualized posterior aspects of the bilateral upper lobes and lower lobes, with air bronchogram, new since abdominal and pelvic CT of 12/11 yesterday, and new since thoracic spine CT of 12/22/2019. New finding of small bilateral pleural effusions. From the T4-5 level through approximately T5-6, the thoracic spinal cord appears mildly anteriorly di splaced in the spinal canal. This is a subtle finding, and it is uncertain whether this is a true finding, because of the degraded images. It is less likely to represent an early ventral cord herniat ion (adherence of the ventral cord surface to a dural tear). Recommend clinical correlation: Is there myelopathy? There is no high-grade central spinal canal stenosis. There is multilevel mild to m oderate discogenic degenerative changes from T8-9 through T12-L1. There is no extrinsic cord compression. IMPRESSION: 1.) No convincing evidence of infectious thoracic spondylitis. 2) mild to moderate lower thoracic spondylosis. 3) extensive bilateral dependent pulmonary consolidations. This probably represents atelectasis becau se this was performed under general anesthesia. However, bilateral severe pneumonia can also have this appearance. Therefore, follow-up two-view chest radiograph is recommended when the patient is ab le to stand. 4) questionable very early ventral thoracic spinal cord herniation at approximately T4-5, considered unlikely. Recommend clinical correlation: Is there myelopathy?
--- NOTE | 2019-12-25 15:09 | MRI ---
Exam: Brain MRI with and without contrast HISTORY: Fever. Midline neck pain and bacteremia. Stiffness. Evaluate for meningitis COMPARISON: None FINDINGS: Gradient echo sequence: No hemorrhage Calvarium: Appropriate T1 marrow signal intensity Midline brain parenchyma: Unremarkable Cerebrum:No parenchymal mass, mass effect or midline shift. Brain volume is age-appropriate. Cortical siegel-white white matter differentiation is preserved. No significant T2 or FLAIR white matter hyperintensities. Ventricles: No evidence of hydrocephalus. Sinuses and mastoid air cells: Mild mucosal thickening of the paranasal sinuses. Adequate mastoid air cell aeration Diffusion: Central arterial flow is maintained. Absent restricted diffusion. Postcontrast images: No pathologic enhancement of the brain parenchyma. No evidence of abnormal menin geal enhancement. IMPRESSION: No acute intracranial process. No evidence of abnormal meningeal enhancement.
[2019-12-25] MEDS: Ibuprofen 800 MG TAB PO PRN (21:08)
[2019-12-26] MEDS: cefTRIAXone\\ROCEPHIN 2 GM in Sodium Chloride 0.9% 100 ML IVPB SCH (03:23)
[2019-12-26] MEDS: Acetaminophen 325 MG TAB PO PRN ×3 (03:51→12:44)
[2019-12-26 04:15] LABS: #Lymphocytes 0.7 thou/uL (1.20-3.40); #Monocytes 0.7 thou/uL (0.11-0.59); #Neutrophils 4.5 thou/uL (1.40-6.50); %Basophils 0.1 % (0.0-1.0); %Eosinophils 0.6 % (0.0-10.0); %Lymphocytes 12.5 % (21.0-51.0); %Monocytes 11.2 % (0.0-10.0); %Neutrophils 75.7 % (42.0-75.0); Hemoglobin 11.7 g/dL (14.0-18.0); Mean Corpuscular HGB CONC 33.4 g/dL (32.0-36.0); Mean Corpuscular Hemoglobin 31.4 pg (27.0-31.0); Mean Corpuscular Volume 93.8 fL (78.0-98.0); Mean Platelet Volume 9.2 fL (7.4-10.4); Platelet Count 124 thou/uL (130-400); RBC Distribution Width 13.1 % (11.5-14.5); Red Blood Cell (RBC) Count 3.74 mill/uL (4.70-6.10); White Blood Cell (WBC) Count 5.9 thou/uL (4.8-10.8)
[2019-12-26 04:33] LABS: ALT (SGPT) 40 U/L (8-55); AST (SGOT) 42 U/L (5-34); Albumin 2.9 g/dL (3.5-5.0); Alkaline Phosphatase 69 U/L (40-110); Anion Gap 10 mmol/L (10-20); BUN (Urea Nitrogen) 16 mg/dL (8.9-20.6); Bilirubin, Total 0.9 mg/dL (0.2-1.2); Calc. Creatinine Clearance 201 mL/min (70-130); Calcium 7.3 mg/dL (7.8-10.44); Carbon Dioxide 23 mmol/L (22-29); Chloride 111 mmol/L (98-107); Estimated GFR-MDRD Greater than 90; Globulin 2.7 g/dL (2.4-3.5); Glucose 86 mg/dL (70-105); Potassium 3.5 mmol/L (3.5-5.1); Protein, Total 5.6 g/dL (6.0-8.3); Sodium 140 mmol/L (136-145)
--- NOTE | 2019-12-26 06:36 | PDOC.FM ---
- Subjective Subjective: Had fever overnight, relieved by tylenol/ibuprofen. Continues to have neck pain , remains able to turn head. States his throat is sore after general anesthesia yesterday. Denies any cough, congestion, SOB, chest pain, abdominal pain, diarrhea, constipation, unusual bleeding, bloody stools, dysuria, hematuria. - Objective Vital Signs & Weight: Vital Signs (12 hours) Temp Pulse Resp BP BP Pulse Ox 12/26/19 03:53 97.6 F 87 20 133/68 93 L 12/25/19 23:49 98.1 F 12/25/19 20:00 101.9 F H 108 H 18 145/82 H 98 Weight Weight 120.383 kg I&O: 12/24/19 12/25/19 12/26/19 06:59 06:59 06:59 Intake Total 7680 2400 800 Output Total 500 2100 Balance 7180 2400 -1300 Result Diagrams: 12/26/19 03:48 12/26/19 03:48 EKG Reviewed by me: Yes (Tele reviewed, no acute events overnight, sinus rhythm/ sinus tachycardia) Phys Exam - Physical Examination Constitutional: NAD HEENT: moist MMs Neck: supple ROM limited due to pain Respiratory: no wheezing, no rales, no rhonchi, clear to auscultation bilateral Cardiovascular: RRR, no significant murmur Gastrointestinal: soft, non-tender, no distention, positive bowel sounds Musculoskeletal: no edema, pulses present Neurological: non-focal, moves all 4 limbs Psychiatric: normal affect, A&O x 3 Skin: no rash Dx/Plan (1) CAD (coronary artery disease) Code(s): I25.10 - ATHSCL HEART DISEASE OF [place] CORONARY ARTERY W/O ANG PCTRS Status: Chronic (2) HTN (hypertension) Code(s): I10 - ESSENTIAL (PRIMARY) HYPERTENSION Status: Chronic (3) HLD (hyperlipidemia) Code(s): E78.5 - HYPERLIPIDEMIA, UNSPECIFIED Status: Chronic (4) Bacteremia Code(s): R78.81 - BACTEREMIA Status: Acute - Plan Plan: Sepsis likely 2/2 intra-abdominal process vs endocarditis vs other Continued neck pain although supple with intact ROM, fever, tachycardia. Procalcitonin downtrending from 79 to 31 over the past 2 days, suggesting improvement. COVID negative. Blood cx positive for E. coli, source not identified. Unremarkable imaging so far including CT head and neck, CXR, MRI of brain, cervical spine, thoracic spine, chest, TTE. Prostate exam performed 12/23 without tenderness. -Infectious disease consulted, appreciate recs -tylenol PRN for fever -ibuprofen PRN for pain -discontinued vancomycin as not needed for E. coli coverage -continue rocephin (12/21), will likely need 2-3 weeks of therapy. will discuss with Dr. Guerra -consider GI consult for scope to r/o translocation from colon cancer, although this may be pursued in outpatient setting CAD s/p stent placement - Stents placed in 09/2019 - plavix resumed 12/24 (held 12/21-12/23) - ASA resumed 12/25 (held 12/21-12/24) Normocytic anemia Hgb 11.2, no signs of acute or active bleeding. Suspect due to hemodilution. - continue to monitor with AM CBC - monitor for any signs of bleeding Thrombocytopenia Improving to 124 today, suspect reactive process vs hemodilution. - Continue to monitor Hypokalemia - continue to monitor and replete as needed HTN -Aware, continue on home meds HLD -Aware, continue on home meds Dispo: admit inpatient Tele IVF: SL Diet: Heart healthy Code Status: FULL CODE DVT Prophylaxis: Lovenox, Plavix Addendum - Attending - Attending Attestation Date/Time: 12/26/19 1773 I personally evaluated the patient and discussed the management with Dr. Govea. I agree with the History, Examination, Assessment and Plan documented above with any addition or exceptions noted below. PO levaquin for 7 additional days per ID. D/C back to retirement.
[2019-12-26] MEDS: Atorvastatin Calcium 40 MG TAB PO SCH (08:17)
[2019-12-26] MEDS: Carvedilol 25 MG TAB PO SCH (08:18)
[2019-12-26] MEDS: Enoxaparin Sodium 40 MG/0.4 ML SYRINGE SC SCH (08:18)
[2019-12-26] MEDS: Amlodipine 5 MG TAB PO SCH (08:18)
[2019-12-26] MEDS: Ibuprofen 800 MG TAB PO PRN (08:20)
[2019-12-26] MEDS ORDERED: Clopidogrel Bisulfate 75 MG TAB PO SCH (09:00)
[2019-12-26] MEDS ORDERED: Aspirin Chewable 81 MG TAB PO SCH (09:00)
[2019-12-26 12:43] VITALS: BP 109/65; TEMP 98.3
--- NOTE | 2019-12-28 02:58 | DIS ---
DATE OF ADMISSION: 12/22/2019 DATE OF DISCHARGE: 12/26/2019 RESIDENT: Radha Govea DO ADMITTING ATTENDING: Alex Reeves MD DISCHARGE ATTENDING: Raciel Ramirez MD CONSULTS: Infectious Disease, Dr. Guerra. PROCEDURES: 1. CTA chest: No convincing evidence for acute pulmonary embolism. 2. CT cervical spine: No acute osseous abnormality. 3. CT thoracic spine: No acute osseous abnormalities. 4. Brain CT: No acute findings. 5. CT abdomen and pelvis with contrast: No acute intraabdominal process. 6. Brain MRI. No acute intracranial process. No evidence of abnormal meningeal enhancement. 7. Cervical spine MRI. Disk osteophyte complex at C4-C5 and C5-C6. Mild central canal stenosis at both level. [id number] bilateral foraminal narrowing at C4-C5. Moderate bilateral foraminal narrowing at C5-C6. No abnormal enhancement to suggest epidural abscess. Thoracic spine MRI, no convincing evidence of infectious thoracic spondylitis. [id number] lower thoracic spondylosis, extensive bilateral dependant pulmonary consolidations. This probably represents atelectasis because this was performed under general anesthesia. However, bilateral severe pneumonia can also have this appearance. Followup with 2-view chest radiograph when patient is able to stand. Questionable very early ventral thoracic spinal cord herniation at approximately T4-T5 considered unlikely. Recommend clinical correlation with myelopathy. 8. Transthoracic echocardiogram. Ejection fraction 55% to 60%. Mild mitral regurgitation. No evidence of mitral valve stenosis. Structurally normal aortic valve with no significant stenosis or regurgitation. Trace tricuspid regurgitation. PRIMARY DIAGNOSIS: Sepsis secondary to E. coli bacteremia. SECONDARY DIAGNOSES: 1. Coronary artery disease, status post stents placement. 2. Hypertension. 3. Hyperlipidemia. 4. Hypokalemia. DISCHARGE MEDICATIONS: 1. Amlodipine 5 mg daily. 2. Aspirin 81 mg daily. 3. Carvedilol 25 mg daily. 4. Atorvastatin 80 mg daily. 5. Clopidogrel 75 mg daily. 6. Ibuprofen 400 mg p.o. b.i.d. 7. Levofloxacin 750 mg p.o. daily for 7 days. DISCONTINUED MEDICATIONS: None. HOSPITAL COURSE: This 49-year-old male, with past medical history of CAD, status post stents in September 2019; hypertension; and hyperlipidemia, presented from [facility] for severe neck pain and a sore on his neck. On ED evaluation, he was found to have a fever of 105.0F degrees, tachycardia, elevated lactate and ESR. He did not have any leukocytosis. He was screened for COVID which was negative. Lumbar puncture was considered, but not performed due to his dual antiplatelet therapy. Initial ED treatment included 2 L of normal saline, 1 g of Rocephin, 500 mg of azithromycin , Zofran, and fentanyl. Upon admission, he was treated with only Rocephin and vancomycin. His initial procalcitonin was 0.71 on admission. Due to concern for possible meningitis with his neck pain and fever, his dual antiplatelets therapy was held for possible lumbar puncture. Due to his report for a sore on his neck, there was also some concern for an epidural abscess. CT of the brain, cervical spine, thoracic spine, and chest were performed and were not suggestive of infection. Due to continued concern for meningitis or epidural abscess, MRI imaging of the brain, cervical spine, and thoracic spine were ordered. However, he was very anxious and unable to complete the MRI even with benzodiazepine. Anesthesia was consulted for sedation and general anesthesia was administered during the MRI. Ultimately, MRI findings were not suggestive of infection either. Blood cultures were positive for E. coli. Infectious Disease was consulted and determined that a lumbar puncture did not need to be performed. His dual antiplatelet therapy was resumed after being held for [address] of the abdomen and pelvis was performed and revealed no signs of infection. Other considered sources were urinary tract, prostate, intraabdominal infection, pneumonia, and endocarditis. Prostate exam and transthoracic echo were also negative. Although his initial procalcitonin was low, his procalcitonin did rise from 0.71 to 73.86 over the course of the first two days and then began to trend back downwards. He had intermittent fevers, but overall the trend of his fever curve went down over the course of his admission. Ultimately, no source of E. coli was identified, but given his clinical improvement, he was discharged in stable condition with a prescription for a 7-day course of Levaquin as recommended by Infectious Disease. May consider screening colonoscopy in the outpatient setting to rule out translocation due to colon cancer. DISPOSITION: Stable. DISCHARGE INSTRUCTIONS: Location: [facility]. Diet: Heart healthy. Activity: As tolerated. Followup: Follow up with primary care provider within 3 days. Job ID: [id number] [facility]ITALBalta
== END 2019-12-26 15:35 | DRG 871 ==
LOC: ERS 11:41 → 2NO 16:33
PROVIDERS: ADMIT Student in an Organized Health Care Education/Training Program; ATTEND Student in an Organized Health Care Education/Training Program
DX: A41.51 Sepsis due to Escherichia coli [E. coli] (principal); G03.9 Meningitis, unspecified; I38 Endocarditis, valve unspecified; Z20.828 Contact with and (suspected) exposure to other viral communicable diseases; E78.5 Hyperlipidemia, unspecified; I10 Essential (primary) hypertension; I25.10 Atherosclerotic heart disease of native coronary artery without angina pectoris; D64.9 Anemia, unspecified; D69.6 Thrombocytopenia, unspecified; F40.240 Claustrophobia; F41.9 Anxiety disorder, unspecified; E87.6 Hypokalemia; R19.7 Diarrhea, unspecified; Z95.1 Presence of aortocoronary bypass graft; Z95.5 Presence of coronary angioplasty implant and graft; I25.2 Old myocardial infarction; Z79.899 Other long term (current) drug therapy; Z79.82 Long term (current) use of aspirin; Z79.02 Long term (current) use of antithrombotics/antiplatelets; Z87.891 Personal history of nicotine dependence; Z87.442 Personal history of urinary calculi
CPT/HCPCS: 36415; 70450; 70553; 71045; 71275; 72125; 72128; 72156; 72157; 74177; 80053; 80202; 80306; 81003; 81015; 82550; 82553; 82805; 83036; 83605; 83690; 84145; 84443; 84484; 85025; 85379; 85652; 86140; 87040; 87077; 87149; 87186; 93005; 93010; 93306; J0456; J0696; J1100; J1650; J1885; J2405; J2704; J3010; J3370; J3490; J7030; Q9967; U0002